=== PATIENT | female | born 1995 | race Caucasian/White ===

== ENCOUNTER 2022-05-26 14:46 | Emergency (ER) | payer OTHER, SELFPAY ==
--- NOTE | ~2022-05-26 | XR_ITS ---
EXAMINATION: XR wrist LT min 3V DATE: 05/26/2022 15:20 INDICATION: Left wrist pain TECHNIQUE: Posteroanterior, ulnar deviation, oblique, and lateral views of the left wrist were obtain ed. COMPARISON: None available FINDINGS: Bone alignment is normal. There is no fracture. The soft tissues are unremarkable. IMPRESSION: 1. No acute osseous abnormality. Reviewed, dictated and finalized at location A.
[2022-05-26 15:08] VITALS: BP 112/68; PULSE 62; RESP 18; TEMP 36.4; O2SAT 100
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
== END 2022-05-26 15:35 | disposition home or self-care (01) ==
PROVIDERS: Emergency Provider Nurse Practitioner Family
DX: S63.502A Unspecified sprain of left wrist, initial encounter (principal); T14.90XA Injury, unspecified, initial encounter
CPT/HCPCS: 73110; 99203; G0463

== ENCOUNTER 2022-09-16 09:10 | Emergency (ER) | payer OTHER, SELFPAY ==
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
[2022-09-16 09:23] VITALS: BP 122/64; PULSE 81; RESP 20; TEMP 36.5; O2SAT 100
== END 2022-09-16 09:40 | disposition home or self-care (01) ==
PROVIDERS: Emergency Provider Nurse Practitioner Family; PCP Emergency Medicine
DX: S06.0X0A Concussion without loss of consciousness, initial encounter (principal); W22.8XXA Striking against or struck by other objects, initial encounter; J45.909 Unspecified asthma, uncomplicated
CPT/HCPCS: 99213; G0463